=== PATIENT | male | born 1970 | race African-American/Black ===

== ENCOUNTER 2017-07-15 08:16 | Emergency (ER) | payer SELFPAY ==
[2017-07-15] MEDS ORDERED: Proparacaine 0.5% Opth 15 ML BOT ONE (09:05)
[2017-07-15] MEDS ORDERED: Fluorescein Opthalmic Strip ONE (09:06)
[2017-07-15] MEDS ORDERED: Ibuprofen 800 MG TAB ONE (10:09)
== END 2017-07-15 10:47 | disposition home or self-care (01) ==
LOC: ERS 08:16
DX: H57.12 Ocular pain, left eye (principal); I10 Essential (primary) hypertension; F31.9 Bipolar disorder, unspecified; F25.9 Schizoaffective disorder, unspecified; F41.9 Anxiety disorder, unspecified; F17.210 Nicotine dependence, cigarettes, uncomplicated
CPT/HCPCS: 99283

== ENCOUNTER 2017-09-16 07:07 | Emergency (ER) | payer OTHER, SELFPAY ==
[2017-09-16] MEDS ORDERED: Morphine 4 MG/ML VIAL ONE (07:28)
[2017-09-16 07:48] LABS: #Eosinphils 0.1 thou/uL (0.0-0.7); #Lymphocytes 1.4 thou/uL (1.20-3.40); #Monocytes 0.4 thou/uL (0.11-0.59); #Neutrophils 3.2 thou/uL (1.40-6.50); %Basophils 0.9 % (0.0-1.0); %Eosinophils 2.1 % (0.0-10.0); %Lymphocytes 27.7 % (21.0-51.0); %Monocytes 8.3 % (0.0-10.0); Red Blood Cell (RBC) Count 4.99 mill/uL (4.70-6.10); White Blood Cell (WBC) Count 5.2 thou/uL (4.8-10.8)
[2017-09-16 08:11] LABS: ALT (SGPT) 9 U/L (8-55); AST (SGOT) 13 U/L (5-34); Alkaline Phosphatase 78 U/L (40-150); Anion Gap 12 mmol/L (10-20); BUN (Urea Nitrogen) 15 mg/dL (8.9-20.6); Bilirubin, Total 0.4 mg/dL (0.2-1.2); Calc. Creatinine Clearance 0 mL/min (70-130); Calcium 9.6 mg/dL (7.8-10.44); Carbon Dioxide 26 mmol/L (22-29); Chloride 107 mmol/L (98-107); Estimated GFR-MDRD Greater than 90; Globulin 3.6 g/dL (2.4-3.5); Protein, Total 7.8 g/dL (6.0-8.3)
--- NOTE | 2017-09-16 09:55 | RAD ---
LEFT TIBIA AND FIBULA 2 VIEWS: Date: 09/16/17 HISTORY: 47-year-old male with severe leg pain, staph infection. FINDINGS: Severe deformity of the proximal tibial diaphysis, evidence for healed fracture and healed postoperat torres changes, with considerable sclerosis and eburnation. Prior MRI exam dated 08/19/17 demonstrates s everal sinus tracts extending anteriorly, evidence for osteomyelitis. Appearance is stable from the 1 study. No evidence for new fracture. IMPRESSION: Extensive deformity from old healed trauma, postoperative changes, and infection. No evidence for acu te fracture or dislocation. POS: [facility]
== END 2017-09-16 09:14 | disposition home or self-care (01) ==
LOC: ERS 07:07
DX: G89.29 Other chronic pain (principal); M79.662 Pain in left lower leg; L90.5 Scar conditions and fibrosis of skin; I25.2 Old myocardial infarction; I10 Essential (primary) hypertension; F31.9 Bipolar disorder, unspecified; F25.9 Schizoaffective disorder, unspecified; F41.9 Anxiety disorder, unspecified; F17.210 Nicotine dependence, cigarettes, uncomplicated; Z79.891 Long term (current) use of opiate analgesic
CPT/HCPCS: 36415; 80053; 83605; 85025; 85652; 86140; 87040; 96374; J2270

== ENCOUNTER 2017-10-10 14:49 | Outpatient (CLI) | payer OTHER ==
--- NOTE | 2017-10-10 17:26 | RAD ---
LEFT TIBIA AND FIBULA 2 VIEWS: Date: 10/10/17 HISTORY: Previous osteomyelitis. Worsening pain. COMPARISON: 09/16/17. FINDINGS: Appearance of left tibia and fibula suggesting changes due to remote trauma. Infectious process canno t be excluded. Acute fracture is not appreciated. IMPRESSION: Findings as above. POS: [facility]
== END 2017-10-10 14:50 | disposition home or self-care (01) ==
LOC: RAD 14:49
PROVIDERS: ATTEND Internal Medicine Infectious Disease
DX: M86.462 Chronic osteomyelitis with draining sinus, left tibia and fibula (principal)

== ENCOUNTER 2017-10-31 23:56 | Emergency (ER) | payer SELFPAY ==
[2017-11-01] MEDS ORDERED: Ondansetron ODT 4 MG TAB ONE (03:21)
[2017-11-01] MEDS ORDERED: Mag-Al 1200 mg/1200 mg/30 ML UDCUP ONE (03:21)
[2017-11-01] MEDS ORDERED: Lidocaine Viscous Sol 2% 15 ml UD Cup ONE (03:22)
[2017-11-01 03:53] LABS: #Eosinphils 0.1 thou/uL (0.0-0.7); #Lymphocytes 1.5 thou/uL (1.20-3.40); #Monocytes 0.4 thou/uL (0.11-0.59); #Neutrophils 7.9 thou/uL (1.40-6.50); %Basophils 0.5 % (0.0-1.0); %Eosinophils 0.6 % (0.0-10.0); %Lymphocytes 14.8 % (21.0-51.0); %Neutrophils 80.1 % (42.0-75.0); Mean Corpuscular HGB CONC 35.3 g/dL (32.0-36.0); Mean Corpuscular Hemoglobin 33.6 pg (27.0-31.0); Mean Corpuscular Volume 95.2 fl (80.0-94.0); Mean Platelet Volume 7.5 fL (7.4-10.4); Platelet Count 230 thou/uL (130-400); RBC Distribution Width 12.4 % (11.5-14.5); Red Blood Cell (RBC) Count 4.46 mill/uL (4.70-6.10); White Blood Cell (WBC) Count 9.8 thou/uL (4.8-10.8)
[2017-11-01 04:01] LABS: ALT (SGPT) 10 U/L (8-55); AST (SGOT) 13 U/L (5-34); Albumin 4.1 g/dL (3.5-5.0); Alkaline Phosphatase 68 U/L (40-150); Anion Gap 13 mmol/L (10-20); BUN (Urea Nitrogen) 9 mg/dL (8.9-20.6); Bilirubin, Total 0.9 mg/dL (0.2-1.2); Calc. Creatinine Clearance 0 mL/min (70-130); Calcium 9.2 mg/dL (7.8-10.44); Carbon Dioxide 24 mmol/L (22-29); Chloride 105 mmol/L (98-107); Estimated GFR-MDRD Greater than 90; Globulin 3.2 g/dL (2.4-3.5); Glucose 104 mg/dL (70-105); Lipase 16 U/L (8-78); Potassium 3.8 mmol/L (3.5-5.1); Protein, Total 7.3 g/dL (6.0-8.3); Sodium 138 mmol/L (136-145)
== END 2017-11-01 04:26 | disposition home or self-care (01) ==
LOC: ERS 23:56
DX: K52.9 Noninfective gastroenteritis and colitis, unspecified (principal); I10 Essential (primary) hypertension; F25.0 Schizoaffective disorder, bipolar type; F41.9 Anxiety disorder, unspecified; F17.210 Nicotine dependence, cigarettes, uncomplicated
CPT/HCPCS: 36415; 80053; 83690; 85025; 99406; Q0162

== ENCOUNTER 2017-12-09 23:25 | Emergency (ER) | payer SELFPAY ==
[2017-12-10 00:01] LABS: #Basophils 0.1 thou/uL (0.0-0.2); #Eosinphils 0.1 thou/uL (0.0-0.7); #Monocytes 0.6 thou/uL (0.11-0.59); #Neutrophils 3.5 thou/uL (1.40-6.50); %Basophils 1.2 % (0.0-1.0); %Eosinophils 1.4 % (0.0-10.0); %Lymphocytes 41.8 % (21.0-51.0); %Monocytes 8.1 % (0.0-10.0); %Neutrophils 47.4 % (42.0-75.0); Hemoglobin 15.1 g/dL (14.0-18.0); Mean Corpuscular HGB CONC 33.7 g/dL (32.0-36.0); Mean Corpuscular Hemoglobin 32.7 pg (27.0-31.0); Mean Corpuscular Volume 96.9 fl (80.0-94.0); Platelet Count 327 thou/uL (130-400); RBC Distribution Width 12.4 % (11.5-14.5); Red Blood Cell (RBC) Count 4.61 mill/uL (4.70-6.10); White Blood Cell (WBC) Count 7.3 thou/uL (4.8-10.8)
[2017-12-10 00:26] LABS: ALT (SGPT) 12 U/L (8-55); AST (SGOT) 17 U/L (5-34); Albumin 4.2 g/dL (3.5-5.0); Alkaline Phosphatase 70 U/L (40-150); Anion Gap 14 mmol/L (10-20); BUN (Urea Nitrogen) 8 mg/dL (8.9-20.6); Bilirubin, Total 0.6 mg/dL (0.2-1.2); CK (CPK) 245 U/L (30-200); Calc. Creatinine Clearance 0 mL/min (70-130); Calcium 9.7 mg/dL (7.8-10.44); Carbon Dioxide 26 mmol/L (22-29); Chloride 104 mmol/L (98-107); Estimated GFR-MDRD Greater than 90; Globulin 3.4 g/dL (2.4-3.5); Glucose 71 mg/dL (70-105); Lipase 23 U/L (8-78); Potassium 3.7 mmol/L (3.5-5.1); Protein, Total 7.6 g/dL (6.0-8.3); Sodium 140 mmol/L (136-145)
[2017-12-10 00:29] LABS: CKMB 1.3 ng/mL (0-6.6); Troponin I Less than 0.010 ng/mL (< 0.028)
[2017-12-10] MEDS ORDERED: Nitroglycerin 0.4 MG TAB (25 Tab Bottle) ONE (02:04)
[2017-12-10 03:46] LABS: Troponin I Less than 0.010 ng/mL (< 0.028)
--- NOTE | 2017-12-10 08:33 | CT ---
PRELIMINARY REPORT/[facility]/EMERGENCY AFTER HOURS PROCEDURE: EXAM: CT Angiography Chest With Intravenous Contrast EXAM DATE/TIME: Exam ordered 12/10/2017 4:03 AM CLINICAL HISTORY: 47 years old, male; Pain; Chest pain; Type not specified; Patient HX: R/O pe TECHNIQUE: Axial computed tomographic angiography images of the chest with intravenous contrast using pulmonary embolism protocol. CONTRAST: 100 mL of ISOVUE administered intravenously. COMPARISON: No relevant prior studies available. FINDINGS: Pulmonary arteries: Unremarkable. No pulmonary embolism. Aorta: No acute findings. No thoracic aortic aneurysm. Lungs: Minimal emphysema. Lungs otherwise clear. No mass. Pleural space: Unremarkable. No significant effusion. No pneumothorax. Heart: Unremarkable. No cardiomegaly. No significant pericardial effusion. No evidence of RV dysfunct ion. Bones/joints: No acute fracture. No dislocation. Soft tissues: Unremarkable. Lymph nodes: Unremarkable. No enlarged lymph nodes. IMPRESSION: No acute findings. Thank you for allowing us to participate in the care of your patient. Dictated and Authenticated by: Deon Sanchez MD 12/10/2017 4:28 AM Central Time ([place] & [place]) FINAL REPORT CT ARTERIOGRAM CHEST WITH IV CONTRAST AND 3D MIP IMAGING: DATE: 11/30/17. TIME: Performed on an emergency basis at 0407 hours. HISTORY: Chest pain. Dyspnea. FINDINGS: Findings agree with the preliminary report from [facility]. There is no CT evidence of pulmon hai embolus. POS: [facility]
--- NOTE | 2017-12-10 09:32 | RAD ---
AP VIEW OF THE CHEST: INDICATION: History of chest pain. IMPRESSION: No acute cardiopulmonary abnormality. The examination is similar to the prior dated 11/18/15. POS: [facility]
[2017-12-10] MEDS ORDERED: ISOVUE-370 76%-LOCM 1 ML ONE (12:56)
--- NOTE | 2018-01-07 14:22 | EKG ---
Test Reason : Blood Pressure : / mmHG Vent. Rate : 062 BPM Atrial Rate : 062 BPM P-R Int : 116 ms QRS Dur : 090 ms QT Int : 446 ms P-R-T Axes : 070 046 040 degrees QTc Int : 452 ms Sinus rhythm with Premature atrial complexes Moderate voltage criteria for LVH, may be normal variant Borderline ECG Confirmed by SHARI POLO M.D. ([id number]), tape editor ERINN GOEL ([id number]) on 01/07/2018 2:21:18 PM Referred By: Confirmed By:SHARI POLO M.D.
== END 2017-12-10 00:54 | disposition home or self-care (01) ==
LOC: ERS 23:25
DX: R07.89 Other chest pain (principal); I25.2 Old myocardial infarction; I10 Essential (primary) hypertension; F31.9 Bipolar disorder, unspecified; F41.9 Anxiety disorder, unspecified; F25.9 Schizoaffective disorder, unspecified; Z71.6 Tobacco abuse counseling; F17.210 Nicotine dependence, cigarettes, uncomplicated
CPT/HCPCS: 36415; 71045; 71275; 80053; 82550; 82553; 83690; 83880; 84484; 85025; 85379; 93005; 96361; 96374; 99406; J2270

== ENCOUNTER 2019-05-15 09:02 | Outpatient (CLI) | payer OTHER ==
--- NOTE | 2019-05-15 10:14 | RAD ---
EXAM: XR Tib Fib Lt Leg 2 View DATE: 05/15/2019 12:00 AM INDICATION: Cyst within the tibia COMPARISON: October 10, 2017 FINDING: Since the comparison examination the cystic abnormality involving the anterior cortex of th e mid to proximal left tibial shaft is less prominent. There is prominent healed bone callus deformity surrounding the left proximal tibial shaft and proximal fibular shaft. No acute fracture is evident. IMPRESSION:Progressive bone filling of the cystic abnormality involving the anterior cortex of the mi d to proximal left tibia. Otherwise, stable healed posttraumatic deformity of the left foreleg.
[2019-05-15] MEDS ORDERED: ISOVUE-370 76%-LOCM 1 ML ONE (13:32)
--- NOTE | 2019-05-15 13:53 | CT ---
CT of the left lower extremity with IV contrast INDICATION: History of osteomyelitis of the left foreleg COMPARISON: MR of the left foreleg dated August 19, 2017 FINDINGS: There is a small residual sinus track extending to a small sequestrum within the anterior c ortex of the mid shaft of the tibia. This is best seen on image 86 of the axial series with a small sequestrum measures approximately 5.1 mm. This was at the site of the prior sinus tract seen on the M R examination. There is prominent surrounding bone callus within the mid to proximal tibial shaft consistent with healed fracture. There is a healed fracture involving the proximal fibular shaft. No drainable fluid collection is evident. There is mild suggested thickening involving the anterior subcutaneous tissues overlying the mid to proximal foreleg which may be posttraumatic in nature; turner jl, component of cellulitis cannot be entirely excluded. IMPRESSION: Small lucent linear defect identified involving the anterior medial cortex of the mid sha ft tibia is at a site of a prior draining sinus tract of the anterior mid shaft tibia. Small focus of bone is seen within the central lucency of the anterior cortex of the mid shaft tibia suspicious f or small focus of sequestrum measuring 5 mm. The extent of the sinus tract formation appears less prominent than on the comparison MR examination and comparison radiographs of the left foreleg likely indicative of some interval healing. A component of chronic osteomyelitis involving the anterior cortex of the midshaft tibia cannot be entirely excluded. There is a well-healed mid to proximal tibi al shaft fracture and proximal fibular shaft fracture. No drainable fluid collection is evident. Mild skin thickening involving the anterior aspect of the left foreleg could be posttraumatic in natu re; however, component of cellulitis is not excluded.
== END 2019-05-15 09:03 | disposition home or self-care (01) ==
LOC: BICCT 09:02
PROVIDERS: ATTEND Internal Medicine Infectious Disease
DX: M86.662 Other chronic osteomyelitis, left tibia and fibula (principal); Z87.81 Personal history of (healed) traumatic fracture
CPT/HCPCS: Q9966